=== PATIENT | female | born 1950 | race Caucasian/White ===

== ENCOUNTER → 2016-07-07 | Outpatient (CLI) | payer MEDICAID, MEDICARE, SELFPAY ==
[~2016-07-07] MED LIST: DEXI30CA PO; K-TA10TA PO; LISI20TA3 PO; PRAV40TA2 PO
[2016-07-07 13:59] LABS: BASO % 0.6 % (0.0-1.0); EOS # 0.1 K/mm3 (0.0-0.50); EOS % 2.1 % (0.0-3.0); LYMPH # 1.2 K/mm3 (1.5-4.5); LYMPH % 26.8 % (24.0-44.0); MEAN CORPUSCULAR HEMOGLOBIN 31.9 pg (27.0-33.0); MEAN CORPUSCULAR HGB CONC 34.1 g/dl (32.0-36.5); MEAN CORPUSCULAR VOLUME 93.4 fl (80.0-96.0); MONO # 0.2 K/mm3 (0.0-0.8); MONO % 5.1 % (0.0-5.0); NEUTROPHILS # 2.8 K/mm3 (1.8-7.7); NEUTROPHILS % 63.7 % (36.0-66.0); RED CELL DISTRIBUTION WIDTH 13.2 % (11.5-14.5); WHITE BLOOD COUNT 4.3 K/mm3 (4.0-10.0)
[2016-07-07 14:29] LABS: ALBUMIN 3.1 GM/DL (3.2-5.2); ALBUMIN/GLOBULIN RATIO 0.86 (1.00-1.93); ALKALINE PHOSPHATASE 121 U/L (45-117); ALT/SGPT 23 U/L (12-78); ANION GAP 6 MEQ/L (8-16); AST/SGOT 21 U/L (15-37); BILIRUBIN,TOTAL 0.4 MG/DL (0.2-1.0); BLOOD UREA NITROGEN 11 MG/DL (7-18); CALCIUM LEVEL 7.8 MG/DL (8.8-10.2); CARBON DIOXIDE LEVEL 29 MEQ/L (21-32); CHLORIDE LEVEL 110 MEQ/L (98-107); CREATININE FOR GFR 0.82 MG/DL (0.55-1.02); GLOMERULAR FILTRATION RATE > 60.0 (>45); GLUCOSE, FASTING 96 MG/DL (80-110); SODIUM LEVEL 145 MEQ/L (136-145); TOTAL PROTEIN 6.7 GM/DL (6.4-8.2)
[2016-07-19 13:31] LABS: FIBROSPECT1 SEE SEPARATE REPORT
== END ==
LOC: M LAB 13:15
PROVIDERS: ATTEND Internal Medicine Gastroenterology
DX: R16.2 Hepatomegaly with splenomegaly, not elsewhere classified (principal)

== ENCOUNTER → 2016-07-12 | Outpatient (CLI) | payer MEDICARE, MEDICAID ==
[~2016-07-12] VITALS: Ht 162.6 cm; Wt 118.4 kg
[~2016-07-12] MED LIST changes: +LIDOCAINE 2% INJ 100 MG/5 ML SDV (FOR ANES.) As Ordered ONE; +PROPOFOL 200 MG/20 ML VIAL As Ordered ONE
[2016-07-12] MEDS: NS 1,000 ML IV SCH ×2 (13:45→15:11)
--- NOTE | 2016-07-12 15:37 | ROOR ---
Patient Name: Tiff Delgado Procedure Date: 07/12/2016 3:19 PM Date of : 1950 Age: 66 Room: [facility] Gender: Female Note Status: Finalized Procedure: Upper GI endoscopy Indications: Cirrhosis rule out esophageal varices, Portal hypertension rule out esophageal varices, Abnormal CT of the GI tract Providers: Cole Vergara MD Referring MD: Daya Elizabeth Md Requesting Provider: Medicines: Monitored Anesthesia Care Complications: No immediate complications. Procedure: Pre-Anesthesia Assessment: - The heart rate, respiratory rate, oxygen saturations, blood pressure, adequacy of pulmonary ventilation, and response to care were monitored throughout the procedure. The Endoscope was introduced through the mouth, and advanced to the second part of duodenum. The upper GI endoscopy was accomplished without difficulty. The patient tolerated the procedure well. Findings: The Z-line was regular and was found 40 cm from the incisors. Grade I varices were found in the lower third of the esophagus. They were medium in size. Varices with no bleeding were found in the cardia. They were large in largest diameter. Mild portal hypertensive gastropathy was found in the entire examined stomach. The exam of the duodenum was otherwise normal. Impression: - Z-line regular, 40 cm from the incisors. - Grade I esophageal varices. - Gastric varices, without bleeding. - Portal hypertensive gastropathy. - No specimens collected. - The examination was otherwise normal. Recommendation: - Patient has a contact number available for emergencies. The signs and symptoms of potential delayed complications were discussed with the patient. Return to normal activities tomorrow. Written discharge instructions were provided to the patient. - Discharge patient to home. - Continue present medications. - Give a beta nolan with dosage titrated by the heart rate. - Repeat upper endoscopy in 1 year for surveillance. - The findings and recommendations were discussed with the patient's family. Cole Vergara MD Cole Vergara MD 07/12/2016 3:36:47 PM This report has been signed electronically. Number of Addenda: 0 Note Initiated On: 07/12/2016 3:19 PM Estimated Blood Loss: Estimated blood loss: none.
[2016-07-12 15:45] VITALS: BP 158/71
== END | disposition home or self-care (01) ==
LOC: M OPP 13:30
PROVIDERS: ATTEND Internal Medicine Gastroenterology
DX: K74.60 Unspecified cirrhosis of liver (principal); K76.6 Portal hypertension; I85.00 Esophageal varices without bleeding; I86.4 Gastric varices; K31.89 Other diseases of stomach and duodenum; I10 Essential (primary) hypertension; E78.00 Pure hypercholesterolemia, unspecified; J45.909 Unspecified asthma, uncomplicated; G47.30 Sleep apnea, unspecified; F17.210 Nicotine dependence, cigarettes, uncomplicated; Z79.899 Other long term (current) drug therapy; Z88.2 Allergy status to sulfonamides

== ENCOUNTER → 2018-04-13 | Outpatient (CLI) | payer MEDICAID ==
[~2018-04-13] MED LIST changes: -DEXI30CA PO; +DEXI30CA2 PO; -LIDOCAINE 2% INJ 100 MG/5 ML SDV (FOR ANES.) As Ordered ONE; -PROPOFOL 200 MG/20 ML VIAL As Ordered ONE
--- NOTE | 2018-04-13 14:47 | PFTRPT ---
Height: 62.50 Inches Weight: 261.00 Lbs BSA: 2.15 Diagnosis: J44.9 DATE OF PROCEDURE: 04/13/2018 ORDERED BY: Dr. Radha Richardson Spirometry: Pre and post bronchodilator study of excellent technical quality. Forced vital capacity normal. FEV1 in proportion. Obstructive index is, therefore, normal. Flow Volume Loop: Expiratory limb of the flow volume loop is normal. No significant bronchodilator response is identified. Lung Volumes: Total lung capacity normal. Residual volume is generally in proportion. Diffusing Capacity: Diffusing capacity is reduced but does correct for alveolar volume. Hemoglobin: Hemoglobin acceptable at 14.4. Airway Mechanics: Airways resistance and conductance are normal. IMPRESSION: Diffusing capacity impairment of unclear significance. Please correlate clinically. MTDD
== END ==
LOC: M CARPUL 13:19
PROVIDERS: ATTEND Internal Medicine Pulmonary Disease
DX: J44.9 Chronic obstructive pulmonary disease, unspecified (principal)

== ENCOUNTER 2020-10-15 18:00 | Emergency (ER) | payer MEDICAID, MEDICARE ==
[~2020-10-15] VITALS: Ht 162.6 cm; Wt 120.5 kg
[~2020-10-15 18:00] MED LIST changes: +LISI20TA20 PO; -LISI20TA3 PO
[2020-10-15 18:52] LABS: BASO % 0.4 % (0.0-1.0); EOS # 0.1 10^3/uL (0.0-0.5); EOS % 1.3 % (0.0-3.0); HEMATOCRIT 39.2 % (36.0-47.0); HEMOGLOBIN 13.9 g/dl (12.0-15.5); LYMPH # 0.5 10^3/uL (1.5-5.0); LYMPH % 8.9 % (24.0-44.0); MEAN CORPUSCULAR HEMOGLOBIN 32.2 pg (27.0-33.0); MEAN CORPUSCULAR HGB CONC 35.5 g/dl (32.0-36.5); MEAN CORPUSCULAR VOLUME 90.7 fl (80.0-96.0); MONO # 0.6 10^3/uL (0.0-0.8); MONO % 10.6 % (2.0-8.0); NEUTROPHILS # 4.2 10^3/uL (1.5-8.5); NEUTROPHILS % 78.2 % (36.0-66.0); RED BLOOD COUNT 4.32 10^6/uL (4.00-5.40); WHITE BLOOD COUNT 5.4 10^3/uL (4.0-10.0)
[2020-10-15 19:17] LABS: PLATELET COUNT, AUTOMATED 65 10^3/uL (150-450)
[2020-10-15 19:18] LABS: BLOOD UREA NITROGEN 20 MG/DL (7-18); CALCIUM LEVEL 7.9 MG/DL (8.8-10.2); CARBON DIOXIDE LEVEL 28 MEQ/L (21-32); CHLORIDE LEVEL 99 MEQ/L (98-107); CREATININE FOR GFR 0.94 MG/DL (0.55-1.30); GLOMERULAR FILTRATION RATE > 60.0 (>39); GLUCOSE, FASTING 85 MG/DL (70-100); POTASSIUM SERUM 3.3 MEQ/L (3.5-5.1); SODIUM LEVEL 134 MEQ/L (136-145)
[2020-10-15] MEDS ORDERED: METOCLOPRAMIDE INJ 10MG/2ML VIAL (J2765 PER 1) IV ONE (19:30)
[2020-10-15 20:04] LABS: ALBUMIN 2.9 GM/DL (3.2-5.2); ALT/SGPT 33 U/L (12-78); BILIRUBIN,DIRECT 1.1 MG/DL (0.0-0.2); BILIRUBIN,TOTAL 2.2 MG/DL (0.2-1.0); CK-MB VALUE MASS 3.1 NG/ML (<3.6); CPK CREATINE PHOSPHOKINASE 232 U/L (26-192); MB/CK RELATIVE INDEX 1.34 (< OR =4); TOTAL PROTEIN 6.4 GM/DL (6.4-8.2); TROPONIN I 0.45 NG/ML (< 0.10)
[2020-10-15 20:33] LABS: INR 1.16; PROTHROMBIN TIME 15.1 SECONDS (12.5-14.3)
[2020-10-15 20:34] LABS: PARTIAL THROMBOPLASTIN TIME 38.8 SECONDS (24.2-38.5)
[2020-10-15 21:01] VITALS: BP 140/63
--- NOTE | 2020-10-16 07:44 | ECGEPIP ---
[facility] - ED Test Date: 2020-10-15 Pat Name: RADHA CORONA Department: Room: - Gender: Female Bottom Buffer: JOSE : 1950 Requested By: Ray Monk Order Number: [id number] Reading MD: Ray Hernandez Measurements Intervals [place] Rate: 62 P: 36 DE: 122 QRS: -55 QRSD: 106 T: 32 QT: 422 QTc: 428 Interpretive Statements Normal sinus rhythm with sinus arrhythmia Left axis deviation Minimal voltage criteria for LVH, may be normal variant ( Alex product ) Possible Anterior infarct , age undetermined BASELINE ARTIFACT AFFECTS INTERPRETATION NO PRIORS FOR COMPARISON Electronically Signed on 10-16-2020 7:44:42 EDT by Ray Hernandez
== END 2020-10-15 22:02 | disposition left against medical advice (07) ==
LOC: M ED 18:00
DX: R79.89 Other specified abnormal findings of blood chemistry (principal); Z53.9 Procedure and treatment not carried out, unspecified reason; K75.81 Nonalcoholic steatohepatitis (NASH); F17.200 Nicotine dependence, unspecified, uncomplicated; Z79.899 Other long term (current) drug therapy; Z88.2 Allergy status to sulfonamides
CPT/HCPCS: 80048; 80076; 81001; 82140; 82550; 82553; 85025; 85049; 85055; 85610; 85730; 86850; 86900; 86901; 93005; 93041; 94760; 96374; 99285; J2765

== ENCOUNTER → 2022-02-26 | Outpatient (CLI) | payer MEDICARE, MEDICAID ==
[~2022-02-26] MED LIST changes: -LISI20TA20 PO; +LISI20TA37 PO; +PROP20TA72
== END ==
LOC: M RAD 07:05
PROVIDERS: ATTEND Internal Medicine Medical Oncology
DX: D69.6 Thrombocytopenia, unspecified (principal); R16.1 Splenomegaly, not elsewhere classified

== ENCOUNTER → 2024-02-08 | Outpatient (REF) | payer MEDICARE, MEDICAID ==
[~2024-02-08] MED LIST changes: -K-TA10TA PO; +POTA-164 PO; -PROP20TA72; +PROP20TA72 PO
== END ==
LOC: M LAB REF 12:58
PROVIDERS: ATTEND Internal Medicine Critical Care Medicine
DX: J18.9 Pneumonia, unspecified organism (principal)

== ENCOUNTER 2024-04-18 12:29 | Inpatient (IN) | payer MEDICARE, MEDICAID ==
[~2024-04-18] VITALS: Ht 162.6 cm; Wt 118.6 kg
[2024-04-18 14:55] LABS: BASO % 0.5 % (0.0-1.0); EOS # 0.1 10^3/uL (0.0-0.5); EOS % 3.5 % (0.0-3.0); HEMATOCRIT 36.9 % (36.0-47.0); HEMOGLOBIN 12.7 g/dl (12.0-15.5); LYMPH # 0.7 10^3/uL (1.5-5.0); LYMPH % 16.8 % (24.0-44.0); MEAN CORPUSCULAR HEMOGLOBIN 33.3 pg (27.0-33.0); MEAN CORPUSCULAR HGB CONC 34.4 g/dl (32.0-36.5); MEAN CORPUSCULAR VOLUME 96.9 fl (80.0-96.0); MONO # 0.3 10^3/uL (0.0-0.8); NEUTROPHILS # 2.9 10^3/uL (1.5-8.5); NEUTROPHILS % 71.9 % (36.0-66.0); RED BLOOD COUNT 3.81 10^6/uL (4.00-5.40)
[2024-04-18] MEDS: hydrALAZINE 20MG/ML 1ML VIAL IV ONE (15:00)
[2024-04-18] MEDS: IPRATROPIUM 0.5MG/ALBUTEROL 2.5MG INH SOL UD 3ML (DUONEB) NEB ONE (15:00)
[2024-04-18] MEDS: methylPREDNISolone 125MG 2ML VIAL IV ONE (15:00)
[2024-04-18 15:16] LABS: PLATELET COUNT, AUTOMATED 39 10^3/uL (150-450)
[2024-04-18] MEDS ORDERED: ISOVUE-370 76% 100ML VIAL As Ordered ONE (15:32)
[2024-04-18 16:07] LABS: ALBUMIN 2.5 G/DL (3.2-5.2); ALKALINE PHOSPHATASE 146 U/L (35-104); ALT/SGPT 26 U/L (7.0-40); AST/SGOT 35 U/L (<34); BILIRUBIN,DIRECT 0.5 MG/DL (<0.4); BILIRUBIN,TOTAL 1.4 MG/DL (0.3-1.2); BLOOD UREA NITROGEN 11 MG/DL (9-23); CALCIUM LEVEL 7.6 MG/DL (8.3-10.6); CARBON DIOXIDE LEVEL 28 MMOL/L (20-31); CHLORIDE LEVEL 108 MMOL/L (98-107); CREATININE FOR GFR 0.73 MG/DL (0.55-1.30); GLOMERULAR FILTRATION RATE > 60.0 (>39); GLUCOSE, FASTING 107 MG/DL (74-106); SODIUM LEVEL 147 MMOL/L (136-145); TOTAL PROTEIN 5.6 G/DL (5.7-8.2)
[2024-04-18] MEDS ORDERED: LISI20TA35 PO (18:00)
[2024-04-18] MEDS ORDERED: ANOR1AER INH (18:00)
[2024-04-18] MEDS ORDERED: IPRA0.00 NEB (18:02)
[2024-04-18] MEDS ORDERED: POTA-151 PO (18:05)
[2024-04-18] MEDS ORDERED: HOME MED LIST COMPLETE! XX SCH (18:10)
[2024-04-18] MEDS ORDERED: IPRATROPIUM 0.5MG/ALBUTEROL 2.5MG INH SOL UD 3ML (DUONEB) NEB PRN (19:10)
[2024-04-18] MEDS: SALMETEROL DISKUS 50MCG INHALER (SEREVENT) INH SCH (20:00)
[2024-04-18] MEDS: FUROSEMIDE 40MG/4ML VIAL IV ONE (20:03)
[2024-04-18 22:27] VITALS: BP 190/82; TEMP 97.3; O2SAT 95
[2024-04-18 22:40] VITALS: BP 168/72
[2024-04-19 05:10] VITALS: BP 147/48; TEMP 97.5; O2SAT 91
[2024-04-19 06:49] LABS: EOS % 0.3 % (0.0-3.0); HEMOGLOBIN 12.5 g/dl (12.0-15.5); LYMPH # 0.3 10^3/uL (1.5-5.0); LYMPH % 9.7 % (24.0-44.0); MEAN CORPUSCULAR HEMOGLOBIN 32.7 pg (27.0-33.0); MEAN CORPUSCULAR HGB CONC 34.7 g/dl (32.0-36.5); MEAN CORPUSCULAR VOLUME 94.2 fl (80.0-96.0); MONO # 0.1 10^3/uL (0.0-0.8); MONO % 2.1 % (2.0-8.0); NEUTROPHILS # 2.5 10^3/uL (1.5-8.5); NEUTROPHILS % 87.9 % (36.0-66.0); RED BLOOD COUNT 3.82 10^6/uL (4.00-5.40); WHITE BLOOD COUNT 2.9 10^3/uL (4.0-10.0)
[2024-04-19 06:53] LABS: PLATELET COUNT, AUTOMATED 35 10^3/uL (150-450)
[2024-04-19] MEDS: TIOTROPIUM INHALER/CAPSULE (SPIRIVA) INH SCH (07:30)
[2024-04-19 07:33] LABS: BLOOD UREA NITROGEN 17 MG/DL (9-23); CALCIUM LEVEL 8.1 MG/DL (8.3-10.6); CARBON DIOXIDE LEVEL 25 MMOL/L (20-31); CHLORIDE LEVEL 110 MMOL/L (98-107); CREATININE FOR GFR 0.72 MG/DL (0.55-1.30); GLOMERULAR FILTRATION RATE > 60.0 (>39); GLUCOSE, FASTING 161 MG/DL (74-106); POTASSIUM SERUM 3.8 MMOL/L (3.5-5.1); SODIUM LEVEL 144 MMOL/L (136-145)
[2024-04-19] MEDS: PRAVASTATIN 20 MG TAB PO SCH (09:10)
[2024-04-19] MEDS: FUROSEMIDE 40MG/4ML VIAL IV SCH (09:11)
[2024-04-19 09:12] VITALS: BP 146/53
[2024-04-19] MEDS: PROPRANOLOL 20 MG TAB PO SCH (09:12)
[2024-04-19 11:35] LABS: PH BODY FLUID 7.653 UNITS (NOT ESTABLISHED); SOURCE, BODY FLUID pH PLEURAL
[2024-04-19 11:36] LABS: SOURCE, BODY FLUID PLEURAL
[2024-04-19 11:37] LABS: APPEARANCE, BODY FLUID HAZY (CLEAR); PLEURAL FL COLOR YELLOW (COLORLESS)
[2024-04-19 11:50] LABS: SOURCE, BODY FLUID GLUCOSE PLEURAL
[2024-04-19 11:51] LABS: LDH, BODY FLUID 75 U/L (NOT ESTABLISHED); SOURCE, BODY FLUID LDH PLEURAL; SOURCE, BODY FLUID TOT PROTEIN PLEURAL; TOTAL PROTEIN, BODY FLUID < 2.0 G/DL (NOT ESTABLISHED)
[2024-04-19 11:52] LABS: AMYLASE, BODY FLUID 44 U/L (NOT ESTABLISHED); SOURCE, BODY FLUID AMYLASE PLEURAL
[2024-04-19 12:00] VITALS: BP 121/39; TEMP 97.7; O2SAT 92
[2024-04-19] MEDS ORDERED: LASI40TA9 PO (12:58)
[2024-04-19] MEDS ORDERED: SPIR-10 PO (12:58)
[2024-04-19] MEDS ORDERED: LISI10TA22 PO (12:58)
== END 2024-04-19 14:19 | disposition home or self-care (01) | DRG 188 ==
LOC: M ED 12:29 → M ED INP 19:07 → M MSPAV 22:15
PROVIDERS: ADMIT Internal Medicine Nephrology; ATTEND Internal Medicine Nephrology
PROC: 0W993ZZ Drainage of Right Pleural Cavity, Percutaneous Approach (ICD-10-PCS; principal; 2024-04-19 12:00)
DX: J90 Pleural effusion, not elsewhere classified (principal); K75.81 Nonalcoholic steatohepatitis (NASH); E66.01 Morbid (severe) obesity due to excess calories; J44.9 Chronic obstructive pulmonary disease, unspecified; I10 Essential (primary) hypertension; E78.5 Hyperlipidemia, unspecified; M19.90 Unspecified osteoarthritis, unspecified site; G47.33 Obstructive sleep apnea (adult) (pediatric); I16.0 Hypertensive urgency; F17.200 Nicotine dependence, unspecified, uncomplicated; R91.1 Solitary pulmonary nodule; D69.6 Thrombocytopenia, unspecified; E04.1 Nontoxic single thyroid nodule; R73.03 Prediabetes; K21.9 Gastro-esophageal reflux disease without esophagitis; M85.80 Other specified disorders of bone density and structure, unspecified site; Z90.49 Acquired absence of other specified parts of digestive tract; Z98.41 Cataract extraction status, right eye; Z98.42 Cataract extraction status, left eye; Z79.899 Other long term (current) drug therapy; Z88.2 Allergy status to sulfonamides

== ENCOUNTER → 2025-03-05 | Outpatient (CLI) | payer MEDICARE, MEDICAID ==
[~2025-03-05] MED LIST changes: +ANOR1AER INH; +IPRA0.00 NEB; +LASI40TA9 PO; +LISI10TA22 PO; +LISI20TA35 PO; +POTA-151 PO; -PRAV40TA2 PO; +PRAV40TA85 PO; +SPIR-10 PO
== END ==
LOC: M IRPRO 09:38
PROVIDERS: ATTEND Internal Medicine Gastroenterology
DX: R18.8 Other ascites (principal)